=== PATIENT | male | born 1950 | race Caucasian/White ===

== ENCOUNTER 2021-09-01 19:00 | Outpatient (CLI) | payer MEDICARE, OTHER | END 2021-09-01 19:01 | disposition home or self-care (01) | LOC: SLEEPLAB 19:00 | PROVIDERS: ATTEND Otolaryngology Plastic Surgery within the Head & Neck | DX: G47.33 Obstructive sleep apnea (adult) (pediatric) (principal); R53.83 Other fatigue; R09.89 Other specified symptoms and signs involving the circulatory and respiratory systems; R06.83 Snoring; G47.00 Insomnia, unspecified; G47.10 Hypersomnia, unspecified; I10 Essential (primary) hypertension | CPT/HCPCS: 95811 ==

== ENCOUNTER 2022-03-05 15:55 | Outpatient (CLI) | payer MEDICARE ==
[2022-03-05 17:25] LABS: Hemoglobin 14.7 g/dL (13.5-17.5)
[2022-03-05 17:37] LABS: Anion Gap 15 mmol/L (10-20); BUN (Urea Nitrogen) 22 mg/dL (8.4-25.7); Calc. Creatinine Clearance 0 mL/min (70-130); Calcium 9.3 mg/dL (7.8-10.44); Carbon Dioxide 25 mmol/L (23-31); Chloride 102 mmol/L (98-107); Glucose 110 mg/dL (80-115); Potassium 3.5 mmol/L (3.5-5.1)
[2022-03-05 18:09] LABS: Sodium 138 mmol/L (136-145)
== END 2022-03-05 15:56 | disposition home or self-care (01) ==
LOC: LABBT 15:55
PROVIDERS: ATTEND Otolaryngology Plastic Surgery within the Head & Neck
DX: Z01.818 Encounter for other preprocedural examination (principal); J34.2 Deviated nasal septum; S09.92XA Unspecified injury of nose, initial encounter; J34.89 Other specified disorders of nose and nasal sinuses; R09.81 Nasal congestion; J30.9 Allergic rhinitis, unspecified; J34.3 Hypertrophy of nasal turbinates; Z20.822 Contact with and (suspected) exposure to COVID-19
CPT/HCPCS: 80048; 85014; 85018; 93005; U0003; U0005; 93010

== ENCOUNTER 2022-03-07 11:18 | Day surgery (SDC) | payer MEDICARE, OTHER ==
[2022-03-06 10:30] VITALS: BMI 33.4
[2022-03-07] MEDS ORDERED: AFRIN NASAL MIST 15 ML BOT ONE (12:45)
[2022-03-07] MEDS ORDERED: fentaNYL Citrate/PF 100 MCG/2 ML SYRINGE ONE (15:03)
[2022-03-07] MEDS ORDERED: Dexmedetomidine 200 MCG/2 ML VIAL ONE (15:03)
[2022-03-07] MEDS ORDERED: Rocuronium Bromide 10 MG/ML (10ML VIAL) ONE (15:07)
[2022-03-07] MEDS ORDERED: Lidocaine 1% PF 5 ML VIAL ONE (15:07)
[2022-03-07] MEDS ORDERED: Glycopyrrolate 0.2 MG/ML 5 ML SYRINGE ONE (15:07)
[2022-03-07] MEDS ORDERED: Ondansetron PF 4 MG/2 ML Vial ONE (15:07)
[2022-03-07] MEDS ORDERED: PROPOFOL 200 MG/20 ML VIAL ONE (15:07)
[2022-03-07] MEDS ORDERED: Dexamethasone 20 MG/5 ML VIAL ONE (15:07)
== END 2022-03-07 18:18 | disposition home or self-care (01) ==
LOC: SDC 11:18
PROVIDERS: ATTEND Otolaryngology Plastic Surgery within the Head & Neck
PROC: 09SM0ZZ Reposition Nasal Septum, Open Approach (ICD-10-PCS; principal; 2022-03-07)
PROC: 09TL8ZZ Resection of Nasal Turbinate, Via Natural or Artificial Opening Endoscopic (ICD-10-PCS; 2022-03-07)
DX: J34.2 Deviated nasal septum (principal); J34.3 Hypertrophy of nasal turbinates; J34.89 Other specified disorders of nose and nasal sinuses; I10 Essential (primary) hypertension; E78.5 Hyperlipidemia, unspecified; G47.30 Sleep apnea, unspecified; N40.0 Benign prostatic hyperplasia without lower urinary tract symptoms; E66.9 Obesity, unspecified; Z68.33 Body mass index [BMI] 33.0-33.9, adult
CPT/HCPCS: J1100; J2405; J2704